=== PATIENT | male | born 1975 | race Caucasian/White ===

== ENCOUNTER 2018-03-16 16:24 | Emergency (ER) | payer OTHER ==
[2018-03-16 16:50] VITALS: BP 150/79
--- NOTE | 2018-03-16 17:02 | UC ---
Cardiac HPI - HPI Summary HPI Summary: The patient is a 42 y/o M presenting to [facility] c/o dull CP in the left anterior chest starting yesterday. He began to feel the pain yesterday, which started off as an intermittent pain that wasn't too apparent and seemed like an anxiety attack but radiated through to his left forearm. Today, the pain worsened and he started feeling his heart racing with palpitations after walking up a large hill, although the pain is alleviated by walking around since he is distracted. He also has noticed that he has gotten palpitations after a night of drinking a beer or two, so he has stopped drinking in the last week. During the palpitations he felt SOB, and the pain was more constant and obvious. The pain at its worst is rated 7/10 in severity, but is currently rated 4/10. He denies nausea, diaphoresis, and calf/ankle pain or swelling. He does not have hx of HTN , hypercholesterolemia, or diabetes. He has FHx of [place] in paternal grandmother. - History of Current Complaint Chief Complaint: UCChestPain Stated Complaint: CHEST PAIN Time Seen by Provider: 03/16/18 16:49 Hx Obtained From: Patient Onset/Duration: Sudden Onset, Lasting Days, Still Present Timing: Constant Initial Severity: Mild Current Severity: Moderate Pain Intensity: 4 Chest Pain Location: Left Anterior Character: Fast, Dull/Aching Aggravating Factor(s): Exertion Alleviating Factor(s): Other - ambulating Associated Signs & Symptoms: Positive: Chest Pain, Anxiety, SOB, Palpitations. Negative: Diaphoresis, Nausea/Vomiting, Calf Pain/Swelling - Allergy/Home Medications Allergies/Adverse Reactions: Allergies Allergy/AdvReac Type Severity Reaction Status Date / Time No Known Allergies Allergy Verified 03/16/18 16:50 Home Medications: Home Medications Latanoprost/Pf [Latanoprost 0.005% Eye Drop] 03/16/18 [History] PMH/Surg Hx/FS Hx/Imm Hx Other Endocrine History: NEGATIVE: diabetes Other Cardiovascular History: NEGATIVE: HTN, hypercholesterolemia - Surgical History Surgical History: None - Family History Known Family History: Positive: Cardiac Disease - [place] in paternal grandmother Negative: Diabetes - Social History Alcohol Use: Occasionally Substance Use Type: None Smoking Status (MU): Former Smoker Review of Systems Constitutional: Other - NEGATIVE: diaphoresis Respiratory: Shortness Of Breath - during palpitations Cardiovascular: Palpitations, Chest Pain - left anterior chest radiation to left forearm Gastrointestinal: Other - NEGATIVE: nausea Musculoskeletal: Other: - NEGATIVE: pain or swelling in ankles and calves Psychological: Anxious All Other Systems Reviewed And Are Negative: Yes Physical Exam - Summary Physical Exam Summary: General: well-appearing, no pain distress, anxious Skin: warm, color reflects adequate perfusion, dry Head: normal Eyes: EOMI, EWA ENT: normal Neck: supple, nontender Respiratory: CTA, breath sounds present Cardiovascular: RRR Abdomen: soft, nontender Bowel: present Musculoskeletal: normal, strength/ROM intact Neurological: sensory/motor intact, A&O x3 Psychological: affect/mood appropriate Triage Information Reviewed: Yes Vital Signs: Initial Vital Signs Temp 99.8 F 03/16/18 16:47 Pulse 109 03/16/18 16:47 Resp 18 03/16/18 16:47 BP 150/79 03/16/18 16:47 Pulse Ox 96 03/16/18 16:47 Vital Signs Reviewed: Yes Diagnostics - EKG EKG Comments: taken at 16:30 Cardiac Rate: Tachycardia - 116 BPM Cardiac Rhythm: Sinus: Normal - Minimal ST depression in lateral leads Ectopy: None - Assessment/Plan Course Of Treatment: Medications reviewed. Allergies noted. BP noted and advised to follow up with PCP. I RECOMMENDED FURTHER EVALUATION NOW IN THE EMERGENCY DEPARTMENT. THE PATIENT DECLINED AMBULANCE TRANSPORT. - Clinical Impression Provider Diagnoses: CHEST PAIN. PALPITATIONS. Elevated BP without dx of HTN, Discharge - Sign-Out/Discharge Documenting (check all that apply): Patient Departure - Patient will be discharged but advised to go to [facility] immediately. - Discharge Plan Condition: Stable Disposition: HOME-RECOMMEND TO ED Patient Education Materials: Chest Pain (ED), Heart Palpitations (ED) [place]errals: [facility] [place] [facility] [place]Outside] Additional Instructions: GO DIRECTLY TO THE EMERGENCY DEPARTMENT FOR FURTHER EVALUATION OF YOUR CHEST PAIN. Your blood pressure was elevated during todays visit; please follow up with your primary care provider within a week for further evaluation. - Billing Disposition and Condition Condition: STABLE Disposition: Home-Recommend to ED Attestation Statement Scribe Attestation: This is melanie Fan documenting for attending Dr. Luciano Wilson MD. User Type: Provider with Scribe Provider Attestation: The documentation recorded by the scribe accurately reflects the service I personally performed and the decisions made by me.
== END 2018-03-16 17:09 | disposition home health service (06) ==
LOC: UCEAST 16:24
DX: R07.89 Other chest pain (principal); R00.2 Palpitations; R03.0 Elevated blood-pressure reading, without diagnosis of hypertension; Z82.49 Family history of ischemic heart disease and other diseases of the circulatory system; Z87.891 Personal history of nicotine dependence
CPT/HCPCS: 93005; 99202; G0463

== ENCOUNTER 2018-03-16 17:34 | Emergency (ER) | payer OTHER ==
[2018-03-16 18:56] LABS: ABS Basophils 0 10^3/ul (0-0.2); ABS Eosinophils 0 10^3/ul (0-0.6); ABS Lymphocytes 1.1 10^3/ul (1.0-4.8); ABS Monocytes 0.5 10^3/ul (0-0.8); ABS Neutrophils 9.5 10^3/ul (1.5-7.7); ABS Nucleated RBC 0 10^3/ul; Eosinophil % 0.3 % (0-6); Hematocrit 42 % (42-52); Hemoglobin 14.3 g/dl (14.0-18.0); Mean Corpuscular HGB Conc 34 g/dl (31-36); Mean Corpuscular Hemoglobin 30 pg (27-31); Mean Corpuscular Volume 88 fL (80-94); Mean Platelet Volume 8.1 um3 (7.4-10.4); Nucleated Red Blood Cells % 0; Platelet Count 207 10^3/ul (150-450); Red Cell Distribution Width 13 % (10.5-15); White Blood Count 11.2 10^3/ul (3.5-10.8)
--- NOTE | 2018-03-16 18:56 | ED ---
HPI Chest Pain - HPI Summary HPI Summary: This is scribe Roman Hayward documenting for attending Aris Rogers MD. This patient is a 42 year old M presenting to [facility] with a chief complaint of a dull, fluctuating L-sided CP since yesterday. The patient rates the pain 2/10 in severity currently. Patient reports palpitations and feeling like he is near- syncope this early afternoon. Patient denies SOB, nausea, vomiting, coughing, and fevers. Patient currently takes Latanoprost for his glaucoma. He moved to this area from [place], [place] about 1.5 months ago. He has a PMHx of glaucoma and panic attacks (hasnt had one in over 10 years). He has no PSHx. Patient quit smoking 5 years ago, occasionally drinks alcohol, and does not use other substances. Patients grandmother of an [place] in her 60s. I, Dr. Rogers, personally performed the services described in this documentation as scribed in my presence, and it is both accurate and complete. - History of Current Complaint Chief Complaint: EDChestPainROMI Time Seen by Provider: 03/16/18 18:25 Hx Obtained From: Patient Onset/Duration: Started Hours Ago - Since yesterday, Still Present Initial Severity: Moderate Current Severity: Mild Pain Intensity: 2 Pain Scale Used: 0-10 Numeric Chest Pain Location: Left Anterior Character: Other: - Dull Aggravating Factor(s): Nothing Alleviating Factor(s): Nothing Associated Signs and Symptoms: Positive: Chest Pain - dull and fluctuating, Palpitations, Other: - feeling like he is near-syncope. Negative: Shortness of Breath, Fever, Nausea, Cough, Vomiting - Allergy/Home Medications Allergies/Adverse Reactions: Allergies Allergy/AdvReac Type Severity Reaction Status Date / Time No Known Allergies Allergy Verified 03/16/18 17:52 PMH/Surg Hx/FS Hx/Imm Hx Sensory History: Reports: Hx Glaucoma Denies: Hx Deafness Psychiatric History: Reports: Hx Panic Disorder - Hasn't had a panic attack in over 10 years Infectious Disease History: No Infectious Disease History: Denies: Traveled Outside the [place] in Last 30 Days - Family History Known Family History: Positive: Cardiac Disease - [place] in paternal grandmother Negative: Diabetes - Social History Lives: With Family Alcohol Use: Occasionally Substance Use Type: Reports: None Smoking Status (MU): Former Smoker Review of Systems Negative: Fever Positive: Palpitations, Chest Pain - dull and fluctuating Negative: Shortness Of Breath, Cough Positive: Vomiting. Negative: Nausea Positive: Syncope - feeling near-syncope All Other Systems Reviewed And Are Negative: Yes Physical Exam - Summary Physical Exam Summary: VITAL SIGNS: Reviewed. GENERAL: Patient is an obese MALE who is lying comfortable in the stretcher. Patient is not in any acute respiratory distress. HEAD AND FACE: No signs of trauma. No ecchymosis, hematomas or skull depressions. No sinus tenderness. EYES: PERRLA, EOMI x 2, No injected conjunctiva, no nystagmus. EARS: Hearing grossly intact. Ear canals and tympanic membranes are within normal limits. MOUTH: Oropharynx within normal limits. NECK: Supple, trachea is midline, no adenopathy, no JVD, no carotid bruit, no c- spine tenderness, neck with full ROM. CHEST: Symmetric, no tenderness at palpation LUNGS: Clear to auscultation bilaterally. No wheezing or crackles. CVS: Regular rate and rhythm, S1 and S2 present, no murmurs or gallops appreciated. ABDOMEN: Soft, non-tender. No signs of distention. No rebound no guarding, and no masses palpated. Bowel sounds are normal. EXTREMITIES: FROM in all major joints, no edema, no cyanosis or clubbing. NEURO: Alert and oriented x 3. No acute neurological deficits. Speech is normal and follows commands. SKIN: Dry and warm Triage Information Reviewed: Yes Vital Signs On Initial Exam: Initial Vitals Temp Pulse Resp BP Pulse Ox 98.6 F 89 20 165/89 165 03/16/18 17:47 03/16/18 17:47 03/16/18 17:47 03/16/18 17:47 03/16/18 17:47 Vital Signs Reviewed: Yes Diagnostics - Vital Signs Vital Signs Temp Pulse Resp BP Pulse Ox 03/16/18 18:32 91 23 96 03/16/18 18:30 22 144/81 03/16/18 18:27 97 03/16/18 17:47 98.6 F 89 20 165/89 165 - Laboratory Result Diagrams: 03/16/18 18:48 03/16/18 18:48 Lab Statement: Any lab studies that have been ordered have been reviewed, and results considered in the medical decision making process. - Radiology Chest X-Ray Radiology Interpretation Completed By: ED Physician - No acute cardiopulmonary disease. Pending official report. - EKG No standard instances Cardiac Rate: NL - 92 BPM EKG Rhythm: Sinus Rhythm EKG Interpretation: 17:56. No ST elevation. Chest Pain Course/Dx - Course Assessment/Plan: Patient is a 42-year-old male who presents to the emergency room with a chief complaint of having left sided chest pain. He reports that the pain is a dull ache without any radiation to the right. The pain is now very mild. Blood test results without any significant abnormality except for what WBC 11.2, glucose of 108, and troponin 0.01. The patients d-dimer is also negative less than 200. Therefore have no suspicion for PE. Second troponin is also 0.01 and the EKG shows no elevations. Therefore the patient will be discharged home with follow-up with PCP. The patient doesnt have comorbidities however I think the patient will benefit from a cardiac stress test. Therefore the patient will be discharged home with follow-up with PCP. I discussed all the findings and test results with the patient. Patient was instructed to return to the emergency room immediately if any of the symptoms return or worsens. Plan of care was discussed with the patient and he understands and agrees. All questions were answered at patient satisfaction. There were no further complaints or concerns. Lung exam before discharge: CTA B /L. Good air exchange. No wheezing or crackles heard. CVS: S1 and S2 present. No murmurs appreciated. Patient is alert and oriented x 3. Patient is hemodynamically stable. Patient will be discharged home with follow up PCP in the next 2-3 days - Chest Pain Differential Diagnosis/HQI/PQRI: Acute RI, ACS, Angina, CHF, Chest Wall, GI Disease, Lower Respiratory Infection - Diagnoses Provider Diagnoses: Atypical chest pain Discharge - Sign-Out/Discharge Documenting (check all that apply): Patient Departure - Discharge Plan Condition: Stable Disposition: HOME Patient Education Materials: Chest Pain (ED) Referrals: Yusef Mccracken MD [Primary Care Provider] - 3 Days Additional Instructions: FOLLOW UP WITH YOUR PRIMARY CARE PROVIDER WITHIN ONE WEEK FOR HIGH BLOOD PRESSURE NOTED TODAY. RETURN TO THE EMERGENCY DEPARTMENT FOR CHANGING OR WORSENING SYMPTOMS.
[2018-03-16 19:17] LABS: EGFR Non-African American 71.2 (>60)
[2018-03-16 22:11] VITALS: BP 130/85
--- NOTE | 2018-03-17 07:25 | RAD ---
INDICATION: Chest pain COMPARISON: None TECHNIQUE: An AP portable view obtained at 1922 hours is submitted. FINDINGS: Bones/Soft Tissues: There are no acute bony findings. Cardiomediastinal: The cardiomediastinal silhouette is normal. Lungs: There are no infiltrates. Pleura: There are no pleural effusions. Other: None IMPRESSION: NO ACTIVE DISEASE. R1
== END 2018-03-16 22:09 | disposition home or self-care (01) ==
LOC: ED 17:34
DX: R07.89 Other chest pain (principal); Z87.891 Personal history of nicotine dependence
CPT/HCPCS: 36415; 71045; 80053; 82550; 82553; 83605; 83735; 83880; 84443; 84484; 85025; 85379; 93005; 99282